=== PATIENT | male | born 1990 | race Two or more races ===

== ENCOUNTER 2017-11-17 15:26 | Emergency (ER) | payer OTHER ==
[~2017-11-17] VITALS: Ht 185.4 cm; Wt 74.8 kg
[~2017-11-17 15:26] MED LIST: ALBUTEROL SULF8.5 GM INH
[2017-11-17] MEDS ORDERED: NORCO 10-325 T1 EACH ORAL (15:30)
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
[2017-11-17 17:00] VITALS: BP 113/69
--- NOTE | 2017-11-18 08:35 | Diagnostic Imaging Report ---
Indication: Chest pain Technique: One view of the chest Comparison: none Findings: Lungs and pleural spaces are clear. Heart size is normal. There is mild thoracic scoliotic deformity Impression: No acute process
== END 2017-11-17 18:30 ==
LOC: EDBD 15:26 → EMR 18:25
DX: R07.9 Chest pain, unspecified (principal); E11.9 Type 2 diabetes mellitus without complications; J45.909 Unspecified asthma, uncomplicated
CPT/HCPCS: 71045; 99283